=== PATIENT | male | born 2005 | race Caucasian/White ===

== ENCOUNTER 2024-01-30 00:05 | Emergency (ER) | payer OTHER ==
[2024-01-30] MEDS: LORazepam 0.5 MG Tab PO ONE (00:35)
[2024-01-30 00:57] LABS: BASOPHILS ABSOLUTE AUTO 0.1 x10-3/uL (0.0-0.3); BASOPHILS PERCENT AUTO 0.6 % (0.3-3.8); BLOOD UREA NITROGEN,BUN 17 mg/dL (7-18); BUN/CREATININE RATIO 12.1 (9-20); CALCIUM 9.8 mg/dL (8.2-10.1); CARBON DIOXIDE,CO2 25 mmol/L (21-32); CHLORIDE,CL 100 mmol/L (100-110); CREATININE 1.4 mg/dL (0.70-1.30); EOSINOPHILS ABSOLUTE AUTO 0.1 x10-3/uL (0.0-0.6); EOSINOPHILS PERCENT AUTO 0.8 % (0.1-6.8); ESTIMATED GFR 74 mL/min (>60); GLUCOSE RANDOM 116 mg/dL (80-116); HEMATOCRIT 42.3 % (38.3-50.1); HEMOGLOBIN 14.7 g/dL (12.9-17.7); MEAN CORPUSCULAR HEMOGLOBIN 29.9 pg (27.0-33.3); MEAN CORPUSCULAR HGB CONC 34.7 g/dL (28.7-35.3); MEAN CORPUSCULAR VOLUME 86.1 fL (80.8-98.7); MEAN PLATELET VOLUME 8.6 fL (6.7-11.0); MONOCYTES ABSOLUTE AUTO 0.8 x10-3/uL (0.0-1.2); MONOCYTES PERCENT AUTO 7.5 % (5.5-15.2); NEUTROPHILS ABSOLUTE AUTO 7.2 x10-3/uL (1.7-6.9); NEUTROPHILS PERCENT AUTO 71.1 % (40.3-71.8); PLATELET COUNT,PLT 265 x10(3)uL (117-477); POTASSIUM,K 3.5 mmol/L (3.5-5.3); RED BLOOD CELL COUNT 4.91 x10(6)uL (3.90-5.90); SODIUM,NA 136 mmol/L (135-145); WHITE BLOOD CELL COUNT,WBC 10.2 x10-3/uL (3.2-10.1)
== END 2024-01-30 01:52 | disposition home or self-care (01) ==
LOC: FB.ED 00:05
DX: F41.0 Panic disorder [episodic paroxysmal anxiety] (principal)
CPT/HCPCS: 36415; 80048; 84484; 85025; 85379; 93005; 93010; 99284; 99285; A9270-GY